=== PATIENT | female | born 1945 | race Caucasian/White ===

== ENCOUNTER 2023-12-17 17:00 | Emergency (ER) | payer OTHER, MEDICARE ==
[~2023-12-17] VITALS: Ht 165.1 cm; Wt 49.4 kg
[2023-12-17] MEDS ORDERED: ELIQUIS5 M1 PO (17:19)
[2023-12-17] MEDS ORDERED: CARDIZEM30 MG PO (17:20)
== END 2023-12-17 18:45 | disposition home or self-care (01) ==
LOC: ED 17:00 → EDSEX 17:16 → ED 18:45
DX: R07.89 Other chest pain (principal); I10 Essential (primary) hypertension; I48.91 Unspecified atrial fibrillation; Z88.8 Allergy status to other drugs, medicaments and biological substances; V43.52XA Car driver injured in collision with other type car in traffic accident, initial encounter; Y93.89 Activity, other specified; Y92.410 Unspecified street and highway as the place of occurrence of the external cause; Y99.8 Other external cause status